=== PATIENT | female | born 2000 | race Caucasian/White ===

== ENCOUNTER 2022-11-21 14:14 | Inpatient (IN) | payer OTHER ==
[2022-11-21] MEDS ORDERED: XYLOCAINE 1% HCL 20 ML MDV IJ PRN (14:41)
[2022-11-21] MEDS: Lactated Ringers 1,000 ML IV SCH ×2 (14:55→16:16)
[2022-11-21 14:59] LABS: Absolute Neutrophil Ct (ANC) 7.26 x10^3/uL (1.4-6.9); BASOPHIL % 0.1 % (0.0-0.4); Basophil (Absolute #) 0.01 x10^3/uL (0-0.4); Eosinophil % 0.7 % (0.00-5.0); Eosinophil (Absolute #) 0.07 x10^3/uL (0-0.5); Hematocrit 41.1 % (35-47); Hemoglobin 13.6 g/dL (12.0-16.0); IMMATURE GRAN # 0.05 x10^3u/L (0.00-0.03); IMMATURE GRAN % 0.5 % (0.00-0.4); Lymphocyte (Absolute #) 1.53 x10^3/uL (1.0-4.6); Lymphocytes % 15.9 % (24.0-44.0); Mean Cell Volume 94.3 fL (78-100); Mean Corpuscular Hemoglobin 31.2 pg (26-32); Mean Corpuscular Hgb Concent. 33.1 g/dL (32-36); Mean Platelet Volume 10.2 fL (7.5-11.0); Monocyte (Absolute #) 0.68 x10^3/uL (0.0-1.3); Monocytes % 7.1 % (0.0-12.0); Neutrophil % 75.7 % (36.0-66.0); Platelet Count 270 x10^3/uL (150-450); Red Blood Count 4.36 x10^6/uL (4.1-5.4); Red Cell Distribution Width 12.4 % (11.5-14.0); White Blood Count 9.6 x10^3/uL (4.0-10.5)
[2022-11-21] MEDS ORDERED: PITOCIN 30 UNITS/ LR 500 ML 30 UNITS/500 ML PLAST..BAG IV SCH (15:00)
[2022-11-21] MEDS ORDERED: OMNIPEN 2 GM*** 2 G in Sodium Chloride 100ML MINI-BAG PLUS 100 ML IV ONE (15:00)
--- NOTE | 2022-11-21 15:12 | XRAY ---
Indication: Evaluate presentation. Limited OB ultrasound demonstrates single intrauterine in cephalic presentation. heart rate 149 BPM.
[2022-11-21 15:17] LABS: Amphetamine,Urine NEGATIVE (NEGATIVE); Barbiturate,Urine NEGATIVE (NEGATIVE); Benzodiazepine,Urine NEGATIVE (NEGATIVE); Cocaine,Urine NEGATIVE (NEGATIVE); Methadone,Urine NEGATIVE (NEGATIVE); Opiate,Urine NEGATIVE (NEGATIVE); PCP,Urine NEGATIVE (NEGATIVE); THC,Urine POSITIVE (NEGATIVE)
[2022-11-21] MEDS ORDERED: Ephedrine Sulfate 50 MG/ML IV PRN (15:17)
[2022-11-21] MEDS ORDERED: Lactated Ringers 1,000 ML IV ONE (15:17)
[2022-11-21] MEDS ORDERED: FENTANYL 2 MCG-BUPIV 0.125%-NS 250 ML Epidur 250 ML EPIDURAL SCH (15:30)
[2022-11-21 16:00] LABS: ABO TYPING A; Antibody Screen NEGATIVE (NEGATIVE); RH TYPING POSITIVE
[2022-11-21] MEDS ORDERED: NORCO 5/325 MG PO PRN (22:16)
[2022-11-21] MEDS ORDERED: TUCKS TP PRN (22:16)
[2022-11-21] MEDS ORDERED: Mylicon 80MG PO PRN (22:16)
[2022-11-21] MEDS ORDERED: TYLENOL EXTRA STRENGTH 500 MG PO PRN (22:16)
[2022-11-22 05:54] LABS: Absolute Neutrophil Ct (ANC) 6.52 x10^3/uL (1.4-6.9); BASOPHIL % 0.2 % (0.0-0.4); Basophil (Absolute #) 0.02 x10^3/uL (0-0.4); Eosinophil (Absolute #) 0.09 x10^3/uL (0-0.5); Hematocrit 36.5 % (35-47); Hemoglobin 12.4 g/dL (12.0-16.0); IMMATURE GRAN # 0.04 x10^3u/L (0.00-0.03); IMMATURE GRAN % 0.4 % (0.00-0.4); Lymphocyte (Absolute #) 1.69 x10^3/uL (1.0-4.6); Lymphocytes % 18.7 % (24.0-44.0); Mean Cell Volume 92.4 fL (78-100); Mean Corpuscular Hemoglobin 31.4 pg (26-32); Mean Platelet Volume 10.4 fL (7.5-11.0); Monocytes % 7.7 % (0.0-12.0); Platelet Count 256 x10^3/uL (150-450); Red Blood Count 3.95 x10^6/uL (4.1-5.4); Red Cell Distribution Width 12.5 % (11.5-14.0); White Blood Count 9.1 x10^3/uL (4.0-10.5)
[2022-11-22] MEDS: MOTRIN 400 MG PO PRN ×2 (05:59→22:19)
[2022-11-22] MEDS ORDERED: Adacel Vial IM ONE (09:00)
[2022-11-22] MEDS: Docusate Sodium 100 MG PO SCH ×2 (10:52→21:51)
[2022-11-22] MEDS: FERREX 150 PO SCH (10:52)
[2022-11-23] MEDS: Docusate Sodium 100 MG PO SCH (09:22)
[2022-11-23] MEDS: FERREX 150 PO SCH (09:22)
--- NOTE | 2022-11-23 09:39 | PCM.NOTE ---
Date and Time: 11/23/22937 Subjective Assessment: ppd 2 sp pt resting in bed and doing well able to ambulate and tolerate diet. vss afebrile abd; soft uterus; firm lochia; mild hgb; 12 a/p sp ppd 2 dc home today fu with dr back in 6 wks OBJECTIVE DATA Vital Signs: Vital Signs - 24 hr Temp Pulse Resp BP Pulse Ox 11/23/22 09:00 98.7 F 87 20 134/78 100 11/23/22 03:30 98.5 F 76 20 121/77 99 11/22/22 20:00 98.7 F 90 18 137/89 99 11/22/22 14:00 98.7 F 98 H 20 122/86 98 Pain Assessment - Last Documented Pain Intensity [Lower Anterior 0 ] Pain Intensity 0 Pain Scale Used 0-10 Pain Scale Intake and Output: Intake & Output 11/20/22 11/21/22 11/22/22 11/23/22 11:59 11:59 11:59 11:59 Intake Total 1400 850 Output Total 3 Balance 1400 847 Weight 71.668 kg Radiology Exams: Radiology Procedures Category Date Time Status OB LIMITED [US] Stat Exams 11/21/22 14:40 Completed Assessment/Plan (1) Vaginal delivery Current Visit: Yes Status: Acute Code(s): O80 - ENCOUNTER FOR FULL-TERM UNCOMPLICATED DELIVERY
--- NOTE | 2022-11-23 09:43 | PCM.DS ---
Discharge Summary Date of Admission: 11/21/22 14:14 Admitting Physician: KAPIL BCA[facility] Consults: Consults on Case 11/21/22 19:49 Navigation ONCE Primary Care Provider: KAPIL BACK Allergies Allergies No Known Drug Allergies Allergy (Unverified 11/21/22 22:35) Hospital Summary - Hospital Course Hospital Course: pt was admitted on november 21 at 39 wks gestation in labor and delivered live baby boy via without complication. during period did well and at this time stable for discharge. stable hgb at 12 and was advised to fu with dr back in 6 wks. all questions answered to her satisfaction. - Vitals & Intake/Output Vital Signs: Vital Signs Temperature 98.7 F 11/23/22 09:00 Pulse Rate 87 11/23/22 09:00 Respiratory Rate 20 11/23/22 09:00 Blood Pressure 134/78 11/23/22 09:00 O2 Sat by Pulse Oximetry 100 11/23/22 09:00 Intake & Output: Intake & Output 11/20/22 11/21/22 11/22/22 11/23/22 11:59 11:59 11:59 11:59 Intake Total 1400 850 Output Total 3 Balance 1400 847 Weight 71.668 kg - Lab Result Diagrams: 11/22/22 05:34 - Radiology Exams Ordered Rad Exams-Entire Visit: Radiology Procedures Category Date Time Status OB LIMITED [US] Stat Exams 11/21/22 14:40 Completed - Procedures and Test Procedures and Tests throughout Hospitalization: Therapy Orders & Screens 11/21/22 20:03 Smoking Cessation Education ONCE Comment: Diagnosis: labor Smoking Status: Current every day smoker How long have you smoked: years Do you dip or chew tobacco: No Final Diagnosis/Problem List - Final Discharge Diagnosis/Problem (1) Vaginal delivery Current Visit: Yes Status: Acute Code(s): O80 - ENCOUNTER FOR FULL-TERM UNCOMPLICATED DELIVERY - Discharge Disposition: Home, Self-Care Condition: Stable Prescriptions: No Action Pnv 119/Iron Fum/Folic Acid [ 19 Tablet] 1 tab PO DAILY Follow up with: KAPIL BACK MD [Primary Care Provider] - 6 weeks
[2022-11-23 10:07] LABS: HBsAg Screen Negative (Negative)
[2022-11-23 18:22] VITALS: BP 133/90; PULSE 88; O2SAT 99
== END 2022-11-23 18:05 | disposition home or self-care (01) | DRG 807 ==
LOC: OB 14:14 → OBSVTOIN 14:14
PROVIDERS: ADMIT Family Medicine; ATTEND Family Medicine
PROC: 10E0XZZ Delivery of Products of Conception, External Approach (ICD-10-PCS; principal; 2022-11-22)
DX: O80 Encounter for full-term uncomplicated delivery (principal); Z37.0 Single live birth; Z3A.39 39 weeks gestation of pregnancy; Z20.828 Contact with and (suspected) exposure to other viral communicable diseases; F12.90 Cannabis use, unspecified, uncomplicated
CPT/HCPCS: 36415; 76815; 80307; 85025; 86850; 86900; 86901; 87340; 90471; 90715; J0290; J2590; A9270-GY